=== PATIENT | male | born 1970 | race Caucasian/White ===

== ENCOUNTER → 2018-01-08 07:09 | Outpatient (CLI) | payer OTHER | END | disposition home or self-care (01) | LOC: LAB 07:09 | DX: Z01.812 Encounter for preprocedural laboratory examination (principal) ==

== ENCOUNTER → 2018-01-08 | Day surgery (SDC) | payer OTHER ==
[~2018-01-08] MED LIST: OMEPRAZOLE20 MG PO
== END | disposition home or self-care (01) ==
LOC: ADM 12-27 07:15 → CIR.AMB 01-01 07:15
DX: M24.831 Other specific joint derangements of right wrist, not elsewhere classified (principal)